=== PATIENT | male | born 1980 | race Hispanic/Latino ===

== ENCOUNTER 2017-07-03 16:29 | Emergency (ER) | payer SELFPAY ==
[2017-07-03] MEDS ORDERED: Ibuprofen 200 MG TAB ONE (16:57)
[2017-07-03] MEDS ORDERED: Bicillin LA 1.2 MILLION UNITS/2 ML SYRINGE ONE (17:45)
[2017-07-03] MEDS ORDERED: Dexamethasone 4 mg/ml Vial ONE (17:45)
== END 2017-07-03 18:15 | disposition home or self-care (01) ==
LOC: ERS 16:29
DX: J02.0 Streptococcal pharyngitis (principal)
CPT/HCPCS: 87430; 96372; J0561; J1100

== ENCOUNTER 2021-01-31 10:29 | Emergency (ER) | payer SELFPAY ==
[~2021-01-31 10:29] MED LIST: Iopamidol-370 76% 500 ML 1 ML ONE
[2021-01-31 12:13] LABS: #Basophils 0.1 thou/uL (0.0-0.2); #Eosinphils 0.1 thou/uL (0.0-0.7); #Lymphocytes 3.5 thou/uL (1.20-3.40); #Monocytes 0.7 thou/uL (0.11-0.59); #Neutrophils 5.4 thou/uL (1.40-6.50); %Basophils 0.6 % (0.0-1.0); %Lymphocytes 36.3 % (21.0-51.0); %Monocytes 7.1 % (0.0-10.0); Hemoglobin 15.9 g/dL (14.0-18.0); Mean Corpuscular Hemoglobin 31.3 pg (27.0-31.0); Mean Corpuscular Volume 86.8 fL (78.0-98.0); Mean Platelet Volume 7.6 fL (7.4-10.4); Platelet Count 275 thou/uL (130-400); RBC Distribution Width 15.4 % (11.5-14.5); Red Blood Cell (RBC) Count 5.09 mill/uL (4.70-6.10); White Blood Cell (WBC) Count 9.7 thou/uL (4.8-10.8)
[2021-01-31 12:24] LABS: Albumin 4.1 g/dL (3.5-5.0)
[2021-01-31 12:25] LABS: Chloride 103 mmol/L (98-107); Sodium 138 mmol/L (136-145)
[2021-01-31 12:26] LABS: Calcium 9.4 mg/dL (7.8-10.44)
[2021-01-31 12:27] LABS: Globulin 3.2 g/dL (2.4-3.5); Glucose 101 mg/dL (70-105); Protein, Total 7.3 g/dL (6.0-8.3)
[2021-01-31 12:28] LABS: Anion Gap 13 mmol/L (10-20); Carbon Dioxide 26 mmol/L (22-29)
[2021-01-31 12:29] LABS: Alkaline Phosphatase 79 U/L (40-110); Bilirubin, Total 0.8 mg/dL (0.2-1.2)
[2021-01-31 12:30] LABS: Calc. Creatinine Clearance 0 mL/min (70-130)
[2021-01-31 12:31] LABS: BUN (Urea Nitrogen) 9 mg/dL (8.9-20.6)
[2021-01-31 12:32] LABS: ALT (SGPT) 19 U/L (8-55); AST (SGOT) 15 U/L (5-34); Lipase 16 U/L (8-78)
[2021-01-31 13:28] LABS: Bilirubin Negative (Negative); Blood, Urine Negative (Negative); Clarity Clear (Clear); Glucose, Urine (Dipstick) Normal (Negative); Ketone, Urine Negative (Negative); Leukocyte Negative Leu/uL (Negative); Nitrite Negative (Negative); Protein, Urine (Dipstick) 20 mg/dL (Neg-Trace); Specific Gravity, Urine 1.032 (1.002-1.036); pH, Urine 6.5 (5.0-9.0)
[2021-01-31] MEDS ORDERED: Ciprofloxacin 500 MG TAB ONE (15:12)
[2021-01-31] MEDS ORDERED: metroNIDAZOLE 250 MG TAB ONE (15:12)
== END 2021-01-31 15:44 | disposition home or self-care (01) ==
LOC: ERS 10:29
DX: K57.32 Diverticulitis of large intestine without perforation or abscess without bleeding (principal)
CPT/HCPCS: 36415; 74177; 80053; 81003; 83690; 85025; Q9967